=== PATIENT | male | born 1985 | race Caucasian/White ===

== ENCOUNTER 2016-08-31 17:40 | Emergency (ER) | payer SELFPAY ==
[~2016-08-31] VITALS: Ht 185.4 cm; Wt 80.0 kg
[2016-08-31] MEDS ORDERED: BACITRACIN OINTMENT 0.9 GM PACKET TOP ONE (18:15)
[2016-08-31] MEDS ORDERED: TETANUS, DIPTHERIA, PERTUSSIS (ADACELL) VACCINE 0.5 ML VIAL IM ONE (18:15)
[2016-08-31] MEDS ORDERED: LIDOCAINE 1% (XYLOCAINE) 20 ML VIAL INJ ONE (18:15)
[2016-08-31 18:54] VITALS: BP 136/94
== END 2016-08-31 18:45 | disposition home or self-care (01) ==
LOC: ED 17:42
DX: S51.012A Laceration without foreign body of left elbow, initial encounter (principal); W25.XXXA Contact with sharp glass, initial encounter; Y93.83 Activity, rough housing and horseplay; Y92.009 Unspecified place in unspecified non-institutional (private) residence as the place of occurrence of the external cause
CPT/HCPCS: 12002; 90471; 90715; 99282